=== PATIENT | female | born 1985 | race Two or more races ===

== ENCOUNTER → 2017-08-02 | Outpatient (CLI) | payer OTHER ==
[2017-08-02 14:57] LABS: T4, Free (Free Thyroxine) 0.73 ng/dL (0.78-2.19)
== END | disposition home or self-care (01) ==
LOC: LABWHC1 14:13
PROVIDERS: ATTEND Internal Medicine Endocrinology, Diabetes & Metabolism
DX: E05.90 Thyrotoxicosis, unspecified without thyrotoxic crisis or storm (principal)
CPT/HCPCS: 36415; 84439; 84443; 84480

== ENCOUNTER → 2017-08-08 | Outpatient (CLI) | payer OTHER ==
[2017-08-08 14:45] LABS: T4, Free (Free Thyroxine) 0.71 ng/dL (0.78-2.19)
== END | disposition home or self-care (01) ==
LOC: LABWHC1 14:00
PROVIDERS: ATTEND Internal Medicine Endocrinology, Diabetes & Metabolism
DX: E05.90 Thyrotoxicosis, unspecified without thyrotoxic crisis or storm (principal)
CPT/HCPCS: 36415; 84439; 84443

== ENCOUNTER → 2017-08-21 | Outpatient (CLI) | payer OTHER ==
[2017-08-21 14:06] LABS: T4, Free (Free Thyroxine) 0.78 ng/dL (0.78-2.19)
== END | disposition home or self-care (01) ==
LOC: LABWHC1 12:56
PROVIDERS: ATTEND Internal Medicine Endocrinology, Diabetes & Metabolism
DX: E05.90 Thyrotoxicosis, unspecified without thyrotoxic crisis or storm (principal)
CPT/HCPCS: 36415; 84439; 84443; 84480

== ENCOUNTER → 2017-09-29 | Outpatient (CLI) | payer OTHER | END | disposition home or self-care (01) | LOC: LABWHC1 12:55 | PROVIDERS: ATTEND Internal Medicine Endocrinology, Diabetes & Metabolism | DX: E03.8 Other specified hypothyroidism (principal) | CPT/HCPCS: 36415; 84443 ==

== ENCOUNTER → 2017-11-10 | Outpatient (CLI) | payer OTHER | END | disposition home or self-care (01) | LOC: LABWHC1 12:25 | PROVIDERS: ATTEND Internal Medicine Endocrinology, Diabetes & Metabolism | DX: E03.9 Hypothyroidism, unspecified (principal) | CPT/HCPCS: 36415; 84443 ==

== ENCOUNTER → 2017-12-25 | Outpatient (CLI) | payer OTHER | END | disposition home or self-care (01) | LOC: LABWHC1 13:19 | PROVIDERS: ATTEND Internal Medicine Endocrinology, Diabetes & Metabolism | DX: E03.8 Other specified hypothyroidism (principal) | CPT/HCPCS: 36415; 84443 ==

== ENCOUNTER → 2018-02-09 | Outpatient (CLI) | payer OTHER ==
[2018-02-09 15:46] LABS: T4, Free (Free Thyroxine) 1.12 ng/dL (0.78-2.19)
== END | disposition home or self-care (01) ==
LOC: LABWHC1 13:03
PROVIDERS: ATTEND Internal Medicine Endocrinology, Diabetes & Metabolism
DX: E03.8 Other specified hypothyroidism (principal)
CPT/HCPCS: 36415; 84439; 84443

== ENCOUNTER → 2018-03-22 | Outpatient (CLI) | payer OTHER ==
[2018-03-22 19:00] LABS: T4, Free (Free Thyroxine) 1.2 ng/dL (0.80-1.80)
== END | disposition home or self-care (01) ==
LOC: LABWHC1 13:22
PROVIDERS: ATTEND Internal Medicine Endocrinology, Diabetes & Metabolism
DX: E03.8 Other specified hypothyroidism (principal)
CPT/HCPCS: 36415; 84439; 84443

== ENCOUNTER → 2018-08-20 | Outpatient (CLI) | payer OTHER ==
[2018-08-20 13:19] LABS: Anisocytosis Slight; HGB 10.8 gm/dL (11.4-16.0); MCH 27.4 pg (25.0-35.0); MCHC 34.8 g/dL (31.0-37.0); MCV 78.8 fL (80.0-100.0); Mean Platelet Volume 10.5; Platelet Count 238 k/uL (150-450); Poikilocytosis Slight; RBC 3.93 m/uL (3.80-5.40); WBC 7.5 k/uL (3.8-10.6)
[2018-08-20 19:24] LABS: Uric Acid 7.3 mg/dL (2.9-7.7)
== END ==
LOC: LABWHC1 12:11
PROVIDERS: ATTEND Obstetrics & Gynecology
DX: O14.90 Unspecified pre-eclampsia, unspecified trimester (principal); Z3A.00 Weeks of gestation of pregnancy not specified
CPT/HCPCS: 36415; 82565; 84450; 84460; 84520; 84550; 85027

== ENCOUNTER 2018-08-21 11:41 | Inpatient (IN) | payer OTHER ==
[2018-08-21] MEDS: LACTATED RINGERS 1,000 ML IV SCH ×3 (12:00→23:07)
[2018-08-21] MEDS ORDERED: TERBUTALINE 1 MG/ML VIAL SQ PRN (12:01)
[2018-08-21] MEDS ORDERED: LIDOCAINE 0.5% (PF) 5 MG/ML (50 ML SDV) SQ PRN (12:01)
[2018-08-21] MEDS ORDERED: OXYTOCIN 10 UNIT/ML 1 ML VIAL IM PRN (12:01)
[2018-08-21] MEDS ORDERED: CARBOPROST TROMETHAMINE 250 MCG/ML 1 ML AMP IM PRN (12:01)
[2018-08-21] MEDS ORDERED: METHYLERGONOVINE 0.2 MG/ML 1 ML AMP IM PRN (12:01)
--- NOTE | 2018-08-21 12:14 | P.HPOB ---
History of Present Illness H&P Date: 08/21/18 Chief Complaint: Preeclampsia This is a 33-year-old 1 para 0 woman with an estimated due date of 09/20/2018 based on first trimester ultrasound who is admitted for induction of labor secondary to preeclampsia. At approximately 33 weeks patient developed asymptomatic proteinuria in her urine. She was otherwise asymptomatic and had normal blood pressures. A 24-hour urine protein showed greater than 3000 mg of protein. She has been followed closely and conservatively since that time with twice weekly labs and NSTs. Her home blood pressures and in office blood pressures have remained in the 130s over 80s range for the most part. On her most recent set of labs she did have an elevation in her AST to 42 and a uric acid of 7.3. Her platelets were normal. She continues to still 3-4+ protein on her urine dip and has developed lower extremity edema. For this reason she is admitted for induction of labor. Currently she denies headaches, visual changes, nausea, vomiting, abdominal pain, heartburn. She has felt good movement and denies contractions or leakage of fluids. She has significant lower extremity edema. Review of Systems All systems: negative Past Medical History Additional Past Medical History / Comment(s): Hypothyroid History of Any Multi-Drug Resistant Organisms: None Reported Past Surgical History: No Surgical Hx Reported Past Psychological History: No Psychological Hx Reported Smoking Status: Never smoker Past Alcohol Use History: None Reported Past Drug Use History: None Reported Medications and Allergies Home Medications Medication Instructions Recorded Confirmed Type Levothyroxine Sodium [Synthroid] 137 mcg PO DAILY 08/21/18 08/21/18 History Allergies Allergy/AdvReac Type Severity Reaction Status Date / Time No Known Allergies Allergy Verified 08/21/18 11:52 Exam Intake and Output 08/20/18 08/21/18 08/21/18 22:59 06:59 14:59 Other: Weight 80.739 kg This is a pleasant female who is visibly gravid. HEENT exam is unremarkable. Her breathing is on labored with no wheezing. Heart is of regular rate and rhythm. The abdomen is gravid with a fundal height of approximately 36 cm. There is no abdominal tenderness or flank pain. She has 2+ swelling of the lower extremities, 3+ deep tendon reflexes with no clonus. On pelvic examination the cervix is 1 cm dilated, 70% effaced and the vertex is in the -2 station. Cervix is anterior. heart tones are currently category 2 by external monitoring. She is having irregular and infrequent contractions. Assessment and Plan (1) 35 weeks gestation of Current Visit: Yes Status: Acute Code(s): Z3A.35 - 35 WEEKS GESTATION OF SNOMED Code(s): 99732652 (2) Preeclampsia Current Visit: Yes Status: Acute Code(s): O14.90 - UNSPECIFIED PRE- ECLAMPSIA, UNSPECIFIED TRIMESTER SNOMED Code(s): 801147620 (3) Hypothyroid Current Visit: Yes Status: Acute Code(s): E03.9 - HYPOTHYROIDISM, UNSPECIFIED SNOMED Code(s): 45847162 Plan: 33-year-old 1 para 0 at 35-4/7 with preeclampsia. She will be admitted, magnesium sulfate started and Pitocin induction of labor. Repeat labs now. status currently reassuring. Situation and indication for induction, magnesium were discussed in detail with the patient and her and all qu estions were answered. Special care nursery is aware.
[2018-08-21] MEDS ORDERED: CALCIUM CHLORIDE 0.5 GM in SODIUM CHLORIDE 0.9% 50 ML IVPB ONE (12:15)
[2018-08-21] MEDS ORDERED: MAGNESIUM SULFATE-WATER PMX 4 GM in WATER FOR INJECTION 1 100ML.BAG IVPB ONE (12:15)
[2018-08-21] MEDS ORDERED: OXYTOCIN 30 UNITS/500 ML NS 30 UNIT in SALINE 1 500ML.BAG IV SCH (12:15)
[2018-08-21 12:31] VITALS: BMI 29.6
[2018-08-21 12:36] LABS: Basophils % (A) 1 %; Blood Urea Nitrogen 17 mg/dL (7-17); Eosinophils # (A) 0.2 k/uL (0-0.7); Eosinophils % (A) 3 %; HCT 29.7 % (34.0-46.0); HGB 10.2 gm/dL (11.4-16.0); Lymphocytes # (A) 1.2 k/uL (1.0-4.8); Lymphocytes % (A) 18 %; MCHC 34.3 g/dL (31.0-37.0); MCV 78.8 fL (80.0-100.0); Mean Platelet Volume 10.3; Monocytes # (A) 0.3 k/uL (0-1.0); Monocytes % (A) 5 %; Neutrophils # (A) 4.7 k/uL (1.3-7.7); Neutrophils % (A) 71 %; Platelet Count 263 k/uL (150-450); Poikilocytosis Slight; RBC 3.77 m/uL (3.80-5.40); Uric Acid 7.4 mg/dL (3.7-7.4); WBC 6.6 k/uL (3.8-10.6)
[2018-08-21] MEDS: MAGNESIUM SULFATE-WATER PMX 20 GM in WATER FOR INJECTION 1 500ML.BAG IV SCH ×2 (12:52→23:03)
[2018-08-21 12:56] LABS: ALT 39 U/L (9-52); AST 60 U/L (14-36); LDH 895 U/L (313-618)
[2018-08-21] MEDS ORDERED: hydrALAZINE HCL 20 MG/ML 1 ML VIAL IVP ONE (13:03)
[2018-08-21 13:14] LABS: INR 0.8 (<1.2); Partial Thromboplastin Time 23.6 sec (22.0-30.0); Prothrombin Time 9.3 sec (9.0-12.0)
[2018-08-21] MEDS ORDERED: LABETALOL 5 MG/ML VIAL MDV IVP PRN ×2 (13:19)
[2018-08-21] MEDS ORDERED: hydrALAZINE HCL 20 MG/ML 1 ML VIAL IVP PRN ×2 (13:19)
[2018-08-21] MEDS ORDERED: BUTORPHANOL 1 MG/ML 1 ML VIAL IV PRN (15:42)
[2018-08-21] MEDS ORDERED: hydrALAZINE HCL 20 MG/ML 1 ML VIAL IM STA (17:22)
[2018-08-21] MEDS ORDERED: hydrALAZINE HCL 20 MG/ML 1 ML VIAL IVP STA (17:34)
[2018-08-21] MEDS ORDERED: fentaNYL (PF) 50 MCG/ML 5 ML AMP ONE (20:34)
[2018-08-21] MEDS ORDERED: SODIUM CHLORIDE 0.9% 100 ML BAG ONE (20:34)
[2018-08-21] MEDS ORDERED: ROPIVACAINE 5MG/ML 20ML VIAL ONE (20:34)
[2018-08-22] MEDS ORDERED: hydrALAZINE HCL 20 MG/ML 1 ML VIAL IVP STA (00:38)
[2018-08-22] MEDS ORDERED: CITRIC ACID-SODIUM CITRATE 15 ML CUP PO ONE (02:11)
[2018-08-22] MEDS ORDERED: ceFAZolin IN SWFI 2 GM/20 ML SYRINGE IVP ONE (02:11)
[2018-08-22] MEDS ORDERED: DEXAMETHASONE SOD PHOS (MDV) 100 MG/10 ML VIAL ONE (02:25)
[2018-08-22] MEDS ORDERED: ePHEDrine SULFATE/0.9% NACL/PF 50 MG/5 ML SYRINGE IV ONE (02:25)
[2018-08-22] MEDS ORDERED: NALBUPHINE 10 MG/ML (1 ML AMP) ONE (02:25)
[2018-08-22] MEDS ORDERED: MORPHINE SULFATE (PF) 0.3 MG/0.3 ML SYR ONE (02:25)
[2018-08-22] MEDS ORDERED: ONDANSETRON 4 MG/2 ML VIAL ONE (02:25)
[2018-08-22] MEDS ORDERED: NALOXONE 0.4 MG/ML 1 ML VIAL IV PRN (03:10)
[2018-08-22] MEDS ORDERED: ACETAMINOPHEN TAB 325 MG TAB PO PRN (03:10)
[2018-08-22] MEDS ORDERED: SIMETHICONE 80 MG CHEWABLE PO PRN (03:10)
[2018-08-22] MEDS ORDERED: HYDROcodone/APAP 5-325MG 1 EACH TAB PO PRN (03:10)
[2018-08-22] MEDS ORDERED: ONDANSETRON 4 MG/2 ML VIAL IVP PRN (03:10)
[2018-08-22] MEDS ORDERED: METOCLOPRAMIDE 5 MG/ML 2 ML VIAL IVP PRN (03:10)
[2018-08-22] MEDS ORDERED: diphenhydrAMINE 50 MG/ML 1 ML VIAL IVP PRN ×2 (03:10)
[2018-08-22] MEDS ORDERED: diphenhydrAMINE 25 MG CAP PO PRN (03:10)
[2018-08-22] MEDS ORDERED: diphenhydrAMINE 50 MG CAP PO PRN (03:10)
[2018-08-22] MEDS ORDERED: ZOLPIDEM 5 MG TAB PO PRN (03:10)
--- NOTE | 2018-08-22 03:10 | P.OP ---
Date of Procedure: 08/22/18 Preoperative Diagnosis: Intrauterine at 35-4/7 weeks' gestation Preeclampsia Category 3 heart tones Postoperative Diagnosis: Same Procedure(s) Performed: Primary low transverse section Anesthesia: spinal Surgeon: Kathy Tan [employer] Sales Leader #1: Yaakov Mittal Estimated Blood Loss (ml): 500 IV fluids (ml): 1,400 Urine output (ml): 50 Pathology: other (Placenta) Condition: stable Disposition: PACU Indications for Procedure: This is a 33-year-old 1 para 0 woman who was admitted at 35-4/7 weeks' gestation with preeclampsia. She had been monitored for proteinuria for the past 1-2 weeks however she began having a trend upward and her liver function tests and blood pressure therefore was admitted for induction of labor. On admission she was 1 cm dilated and 70% effaced. Pitocin induction was initiated and magnesium sulfate was initiated. She underwent artificial rupture of membranes and had slow progression to active labor. She did require hydralazine on 3 occasions for blood pressure management. She did receive an epidural anesthetic and progressed to approximately 7 cm dilated. Over the last 1 hour of the her labor she had minimal variability with absent accelerations and moderate variable decelerations with contractions. She had made no further progress despite 20 milliunits of Pitocin per minute and therefore the decision was made to proceed to section. The patient and her were counseled on and risks and benefits were reviewed. Consent was obtained. Operative Findings: Female in the vertex occiput posterior position with Apgars of 8 at 1 minute and 9 at 5 minutes weighing 5 lbs. 9 oz., 2530 g. Calcified, intact three-vessel cord placenta. Normal-appearing bilateral fallopian tubes and ovaries. Description of Procedure: After the patient was met preoperatively and all questions were answered, she was taken to the operating room where spinal anesthetic was administered without incident. She was then positioned, prepped and draped in the dorsal supine position with a leftward tilt. Toledo catheter was placed. After anesthetic was confirmed adequate, a low transverse skin incision was made following the pre- existing scar. This was carried down to the underlying fascia both sharply and with the electrocautery. The fascia was then incised in the midline and extended bilaterally with the Pike scissors. The superior aspect of the fascial incision was elevated and the underlying rectus muscles dissected off sharply and with the electrocautery. The inferior aspect of the fascial incision was also elevated and the underlying rectus muscles dissected off sharply. The muscles were adherent in the midline. These were bluntly and the per itoneum was tented up with hemostats. The peritoneum was entered sharply with the Metzenbaum scissors. There was a large amount of clear intraperitoneal fluid. The peritoneal incision was extended inferiorly and superiorly with good visualization of the bladder. The bladder blade was placed. The vesicouterine peritoneum was identified, tented up and entered sharply, the bladder flap was created both sharply and digitally. A low transverse uterine incision was then made sharply and carried down to the underlying amniotic membranes. Membranes were ruptured and clear fluid was noted. The uterine incision was extended bilaterally bluntly. The infant's head was delivered from the incision without difficulty. The nose and mouth were bulb suctioned. The rest of the infant was delivered onto the field without difficulty. And cut and the infant was taken to the warmer. An intact, three-vessel cord placenta was then manually removed and the uterus was exteriorized. The uterus was cleared of all clot and debris. The uterine incision was delineated with Tam clamps. The uterine incision was then closed in a running locked fashion with 0 Vicryl suture. A second imbricating layer was placed. Additional [id number] sutures were placed where necessary along the incision for hemostasis. The uterus was then returned to the abdomen and the gutters were cleared of all clot and debris. The uterine incision was reinspected and Bovie electrocautery was utilized were necessary for hemostasis. The fascial edges, peritoneal edges and rectus muscles were inspected and Bovie electrocautery utilized were necessary for hemostasis. The fascia was then closed in a running fashion with 0 Vicryl suture. The subcuticular tissue was copiously suction irrigated and Bovie el ectrocautery utilized were necessary for hemostasis. 3-0 Vicryl suture was utilized to reapproximate the subcuticular tissue. The skin was then closed in a subcutaneous fashion with siva. All counts reported to me as correct by the operating room staff at the end of the procedure. The patient received antibiotics preoperatively and Pitocin following cord clamp. Mother and infant were both transported from the room in stable condition. Of note the urine in the Toledo catheter was bloody prior to the section likely secondary to the low station of the head.
[2018-08-22] MEDS ORDERED: OXYTOCIN 20 UNITS/1000 ML NS 1,000 ML IV SCH (03:15)
[2018-08-22 04:53] LABS: Anisocytosis Slight; HCT 30.3 % (34.0-46.0); HGB 10.1 gm/dL (11.4-16.0); MCH 26.8 pg (25.0-35.0); MCHC 33.5 g/dL (31.0-37.0); Mean Platelet Volume 10.8; Platelet Count 281 k/uL (150-450); RBC 3.79 m/uL (3.80-5.40); RDW 16.3 % (11.5-15.5)
[2018-08-22 05:26] LABS: Magnesium 7.4 mg/dL (1.6-2.3)
[2018-08-22] MEDS: LACTATED RINGERS 1,000 ML IV SCH ×2 (05:46→10:04)
[2018-08-22] MEDS: SENNOSIDES-DOCUSATE SODIUM 1 EACH TAB PO SCH (11:16)
[2018-08-22] MEDS: MAGNESIUM SULFATE-WATER PMX 20 GM in WATER FOR INJECTION 1 500ML.BAG IV SCH (21:01)
[2018-08-23] MEDS: SENNOSIDES-DOCUSATE SODIUM 1 EACH TAB PO SCH ×3 (00:54→21:36)
[2018-08-23] MEDS: LACTATED RINGERS 1,000 ML IV SCH (01:56)
--- NOTE | 2018-08-23 07:29 | P.PN ---
Progress Note - Text Anesthesia POD 1. Patient is status post section under final anesthesia with intra-thecal preservative free morphine 300 g. Mild pruritus, good post-op analgesia, and no headache or other complications.
[2018-08-23 07:40] LABS: Anisocytosis Slight; Basophils % (A) 0 %; Eosinophils # (A) 0.1 k/uL (0-0.7); Eosinophils % (A) 0 %; HCT 28.5 % (34.0-46.0); HGB 9.4 gm/dL (11.4-16.0); Lymphocytes # (A) 1.3 k/uL (1.0-4.8); Lymphocytes % (A) 8 %; MCH 26.2 pg (25.0-35.0); MCHC 33.2 g/dL (31.0-37.0); MCV 78.9 fL (80.0-100.0); Mean Platelet Volume 10.4; Monocytes # (A) 0.8 k/uL (0-1.0); Monocytes % (A) 5 %; Neutrophils # (A) 13.5 k/uL (1.3-7.7); Neutrophils % (A) 86 %; Platelet Count 294 k/uL (150-450); RBC 3.61 m/uL (3.80-5.40); RDW 16.8 % (11.5-15.5); WBC 15.8 k/uL (3.8-10.6)
--- NOTE | 2018-08-23 08:28 | P.PNOBGPC ---
Subjective - Subjective Principal diagnosis: Preeclampsia Interval history: Postop day 1 status post repeat low transverse section. Patient was monitored closely throughout the last 24 hours. She was initially oliguric in the first 12 hours post operative with urine outputs between 25 and 40 mL's per hour a very concentrated urine. She was also extremely nauseated with emesis. Therefore her magnesium sulfate was discontinued at 12 hours postoperatively. Her blood pressures ranged from 130s to 160s over 80s to 90s. By the evening her urine output began to significantly improve and her nausea had resolved. This morning she reports feeling significantly better. She is tolerating a general diet. She denies headaches, visual changes, nausea, vomiting. She did receive hydralazine for elevated blood pressure once throughout the night. She reports her pain is well-controlled. Patient reports: Reports appetite normal, Reports pain well controlled, Denies nauseated [place]: doing well (And special care nursery for gestational age) Objective - Vital Signs Latest vital signs: Vital Signs Temp Pulse Resp BP Pulse Ox 08/23/18 04:00 98.2 F 56 L 16 137/75 97 08/23/18 00:00 98.0 F 56 L 16 163/89 98 08/22/18 23:00 55 L 16 158/87 97 08/22/18 22:00 60 16 163/90 97 08/22/18 21:00 54 L 16 146/85 96 08/22/18 20:00 97.6 F 55 L 16 157/87 100 08/22/18 19:00 97.1 F L 57 L 16 153/93 99 08/22/18 18:00 61 16 161/92 99 08/22/18 17:00 52 L 16 148/90 97 08/22/18 16:00 97.7 F 59 L 16 139/88 96 08/22/18 15:00 55 L 16 137/84 96 08/22/18 14:00 62 16 156/89 96 08/22/18 13:00 64 16 164/87 98 08/22/18 12:00 71 16 124/82 96 08/22/18 11:00 71 16 137/83 08/22/18 10:00 50 L 16 134/80 97 08/22/18 09:00 55 L 16 152/88 96 Intake and Output 08/22/18 08/23/18 08/23/18 22:59 06:59 14:59 Intake Total 1000 Output Total 680 2200 Balance 320 -2200 Intake: Oral 1000 Output: Urine 680 2200 Other: Voiding Method Indwelling Catheter - Exam Lungs: right: crackles/rales, left: normal Chest: Normal S1, Normal S2 Extremities: Present: normal, edema (3+) Abdomen: Present: soft, distention (Soft). Absent: tenderness Incision: Present: normal, dry, intact Uterus: Present: normal, firm. Absent: tenderness - Labs Labs: Abnormal Lab Results - Last 24 Hours (Table) 08/23/18 Range/Units 06:47 WBC 15.8 H (3.8-10.6) k/uL RBC 3.61 L (3.80-5.40) m/uL Hgb 9.4 L (11.4-16.0) gm/dL Hct 28.5 L (34.0-46.0) % MCV 78.9 L (80.0-100.0) fL RDW 16.8 H (11.5-15.5) % Neutrophils # 13.5 H (1.3-7.7) k/uL Assessment and Plan (1) 35 weeks gestation of Current Visit: Yes Status: Acute Code(s): Z3A.35 - 35 WEEKS GESTATION OF SNOMED Code(s): 21320023 (2) Preeclampsia Current Visit: Yes Status: Acute Code(s): O14.90 - UNSPECIFIED PRE- ECLAMPSIA, UNSPECIFIED TRIMESTER SNOMED Code(s): 709967412 (3) Hypothyroid Current Visit: Yes Status: Acute Code(s): E03.9 - HYPOTHYROIDISM, UNSPECIFIED SNOMED Code(s): 52244773 (4) S/P section Current Visit: Yes Status: Acute Code(s): Z98.891 - HISTORY OF UTERINE SCAR FROM PREVIOUS SURGERY SNOMED Code(s): 992704472 Plan: Postop day 1 status post primary low transverse section for preeclampsia and nonreassuring status. She is now greater than 24 hours postdelivery and her magnesium sulfate has been discontinued. She is now diuresing very well with copious clear urine output. I will start her on by mouth labetalol twice daily and discontinue her Toledo catheter and IV fluids. Increase ambulation.
[2018-08-23] MEDS: IBUPROFEN 600 MG TAB PO PRN ×2 (09:07→18:43)
[2018-08-23] MEDS: LABETALOL 200 MG TAB PO SCH ×2 (09:07→21:36)
[2018-08-24] MEDS: LACTATED RINGERS 1,000 ML IV SCH (02:14)
--- NOTE | 2018-08-24 08:09 | P.PNOBGPC ---
Subjective - Subjective Principal diagnosis: Preeclampsia, postop day 2 Interval history: Feeling significantly better this morning. She is ambulating and voiding without difficulty. Lower extremity and abdominal edema significantly improved. Denies headaches, visual changes, nausea, vomiting. Pain recently well- controlled with ibuprofen. Minimal vaginal bleeding. Patient reports: Reports appetite normal, Reports voiding normally, Reports pain well controlled, Reports ambulating normally, Denies nauseated [place]: doing well (Special care nursery for gestational age) Objective - Vital Signs Latest vital signs: Vital Signs Temp Pulse Resp BP Pulse Ox 08/24/18 04:00 98.9 F 62 16 132/72 08/24/18 00:00 98.3 F 56 L 16 148/75 98 08/23/18 20:00 98.7 F 67 16 142/85 99 08/23/18 16:00 98.4 F 61 18 152/88 99 08/23/18 12:00 98.2 F 56 L 18 142/74 Intake and Output 08/23/18 08/24/18 08/24/18 22:59 06:59 14:59 Output Total 1100 Balance -1100 Output: Urine 1100 Other: Voiding Method Indwelling Catheter # Voids 1 - Exam Lungs: bilateral: normal Chest: Normal S1, Normal S2 Extremities: Present: normal, edema (2+). Absent: tenderness Abdomen: Present: normal appearance, soft. Absent: distention, tenderness Incision: Present: normal, dry, intact Uterus: Present: normal, firm. Absent: tenderness Assessment and Plan (1) 35 weeks gestation of Current Visit: Yes Status: Acute Code(s): Z3A.35 - 35 WEEKS GESTATION OF SNOMED Code(s): 44400688 (2) Preeclampsia Current Visit: Yes Status: Acute Code(s): O14.90 - UNSPECIFIED PRE- ECLAMPSIA, UNSPECIFIED TRIMESTER SNOMED Code(s): 900849960 (3) Hypothyroid Current Visit: Yes Status: Acute Code(s): E03.9 - HYPOTHYROIDISM, UNSPECIFIED SNOMED Code(s): 45121934 (4) S/P section Current Visit: Yes Status: Acute Code(s): Z98.891 - HISTORY OF UTERINE SCAR FROM PREVIOUS SURGERY SNOMED Code(s): 438910093 (5) Non-reassuring heart rate or rhythm affecting management of fetus Current Visit: Yes Status: Acute Code(s): KXT9886 - SNOMED Code(s): 357392645 Plan: Postoperative day 2 status post primary low transverse section secondary to preeclampsia and nonreassuring heart tones. Significant improvement in fluid status today. Excellent urine output and it decreased in edema of the lower extremities. Blood pressures are mainly 130s to 140s over 70s to 80s on labetalol 200 mg twice a day. She otherwise is asymptomatic and is recovering well postoperatively. Events leading up to admission, labor and her course were reviewed in detail with the patient and her this morning. Infant is doing very well in the special care nursery. All questions were answered. I anticipate discharge home on Monday with close follow-up in the office for blood pressure monitoring.
[2018-08-24] MEDS: SENNOSIDES-DOCUSATE SODIUM 1 EACH TAB PO SCH ×2 (09:40→21:27)
[2018-08-24] MEDS: LABETALOL 200 MG TAB PO SCH ×2 (09:47→20:40)
[2018-08-24] MEDS: IBUPROFEN 600 MG TAB PO PRN (19:21)
[2018-08-25] MEDS: LABETALOL 200 MG TAB PO SCH ×5 (03:16→22:53)
--- NOTE | 2018-08-25 08:42 | P.PNOBGPC ---
Subjective - Subjective Principal diagnosis: POD 3 LTCS, severe preeclampsia Interval history: Patient is doing well postoperatively. She did have some elevated blood pressures last evening 150s over 100s therefore her 200 mg of labetalol was increased to 3 times a day from PID. Patient is seen this morning she is ambulating and voiding without difficulty. She looks well. She states she is feeling well. is doing well in special care nursery she denies any concerns denies headache right upper quadrant pain swelling continues to decrease. Patient reports: Reports appetite normal, Reports voiding normally, Reports pain well controlled, Reports ambulating normally [place]: doing well (In special care nursery) Objective - Vital Signs Latest vital signs: Vital Signs Temp Pulse Resp BP Pulse Ox 08/25/18 08:00 97.6 F 60 15 108/52 98 08/25/18 03:17 59 L 153/101 08/25/18 00:00 98.7 F 56 L 14 135/74 08/24/18 16:00 98.2 F 76 16 158/100 - Exam Extremities: Present: normal, edema Abdomen: Present: normal appearance, soft Incision: Present: normal, dry, intact Uterus: Present: normal, firm Assessment and Plan (1) 35 weeks gestation of Current Visit: Yes Status: Acute Code(s): Z3A.35 - 35 WEEKS GESTATION OF SNOMED Code(s): 99974899 (2) Hypothyroid Current Visit: Yes Status: Acute Code(s): E03.9 - HYPOTHYROIDISM, UNSPECIFIED SNOMED Code(s): 09118700 (3) Non-reassuring heart rate or rhythm affecting management of fetus Current Visit: Yes Status: Acute Code(s): BRO5887 - SNOMED Code(s): 385343410 (4) Preeclampsia Current Visit: Yes Status: Acute Code(s): O14.90 - UNSPECIFIED PRE- ECLAMPSIA, UNSPECIFIED TRIMESTER SNOMED Code(s): 587299826 (5) S/P section Current Visit: Yes Status: Acute Code(s): Z98.891 - HISTORY OF UTERINE SCAR FROM PREVIOUS SURGERY SNOMED Code(s): 729758935 Plan: We will continue routine postoperative care, and continue to monitor blood pressures closely.
[2018-08-25] MEDS: SENNOSIDES-DOCUSATE SODIUM 1 EACH TAB PO SCH ×2 (08:54→20:41)
[2018-08-26 06:57] LABS: Anisocytosis Slight; Basophils % (A) 0 %; Eosinophils # (A) 0.6 k/uL (0-0.7); Eosinophils % (A) 6 %; HCT 27.6 % (34.0-46.0); HGB 9.1 gm/dL (11.4-16.0); Lymphocytes # (A) 1.5 k/uL (1.0-4.8); Lymphocytes % (A) 15 %; MCH 25.8 pg (25.0-35.0); MCV 78.2 fL (80.0-100.0); Mean Platelet Volume 11.2; Microcytosis Slight; Monocytes # (A) 0.5 k/uL (0-1.0); Monocytes % (A) 5 %; Neutrophils # (A) 7.2 k/uL (1.3-7.7); Neutrophils % (A) 72 %; Platelet Count 279 k/uL (150-450); RBC 3.54 m/uL (3.80-5.40); RDW 17.4 % (11.5-15.5); WBC 9.9 k/uL (3.8-10.6)
[2018-08-26 07:16] LABS: ALT 96 U/L (9-52); AST 74 U/L (14-36); Blood Urea Nitrogen 8 mg/dL (7-17); LDH 796 U/L (313-618); Uric Acid 5.5 mg/dL (3.7-7.4)
[2018-08-26] MEDS: LABETALOL 200 MG TAB PO SCH ×3 (08:51→22:03)
[2018-08-26] MEDS: SENNOSIDES-DOCUSATE SODIUM 1 EACH TAB PO SCH ×2 (08:51→20:11)
--- NOTE | 2018-08-26 16:11 | P.PNOBGPC ---
Subjective - Subjective Principal diagnosis: POD 4 LTCS Interval history: Patient is noted to still have labile blood pressures. 150s to 160s over 90s to 100s. Patient does respond well to labetalol by mouth. Labs were done last night and elevation of a LT from 39-96 was noted uric acid was noted to drop from 7.4-5.5 but given this elevation of her liver function and labile blood pressures we'll keep 1 more day for close observation of blood pressures and possible need to adjust labetalol dose. Patient denies headache right upper quadrant pain and swelling continues to decrease. She is ambulating and voiding without difficulty. She is tolerating regular diet without nausea or vomiting. She states her lochia is minimal. She is pumping. Patient reports: Reports appetite normal, Reports voiding normally, Reports pain well controlled, Reports ambulating normally : doing well (in the special care nursery, feeding is improved. ) Objective - Vital Signs Latest vital signs: Vital Signs Temp Pulse Resp BP 08/26/18 08:00 978 F H 73 16 141/86 08/26/18 04:20 98.4 F 51 L 16 167/94 08/26/18 00:00 98.3 F 69 14 163/90 - Exam Extremities: Present: normal, edema Abdomen: Present: normal appearance, soft Incision: Present: normal, dry, intact Uterus: Present: normal - Labs Labs: Abnormal Lab Results - Last 24 Hours (Table) 08/26/18 08/26/18 Range/Units 06:21 06:21 RBC 3.54 L (3.80-5.40) m/uL Hgb 9.1 L (11.4-16.0) gm/dL Hct 27.6 L (34.0-46.0) % MCV 78.2 L (80.0-100.0) fL RDW 17.4 H (11.5-15.5) % AST 74 H (14-36) U/L ALT 96 H (9-52) U/L Lactate Dehydrogenase 796 H (313-618) U/L Assessment and Plan (1) 35 weeks gestation of Current Visit: Yes Status: Acute Code(s): Z3A.35 - 35 WEEKS GESTATION OF SNOMED Code(s): 91403363 (2) Hypothyroid Current Visit: Yes Status: Acute Code(s): E03.9 - HYPOTHYROIDISM, UNSPECIFIED SNOMED Code(s): 58273757 (3) Non-reassuring heart rate or rhythm affecting management of fetus Current Visit: Yes Status: Acute Code(s): FTM9996 - SNOMED Code(s): 802847152 (4) Preeclampsia Current Visit: Yes Status: Acute Code(s): O14.90 - UNSPECIFIED PRE- ECLAMPSIA, UNSPECIFIED TRIMESTER SNOMED Code(s): 905634126 (5) S/P section Current Visit: Yes Status: Acute Code(s): Z98.891 - HISTORY OF UTERINE SCAR FROM PREVIOUS SURGERY SNOMED Code(s): 259788887 Plan: We'll plan to monitor blood pressures closely over the evening and if controlled we'll plan discharge home tomorrow. Patient is given a prescription for a breast pump to be filled tomorrow morning. And labetalol prescription is on chart.
[2018-08-26 23:51] VITALS: PULSE 68
[2018-08-27] MEDS: SENNOSIDES-DOCUSATE SODIUM 1 EACH TAB PO SCH (07:28)
--- NOTE | 2018-08-27 08:29 | P.DS ---
Providers Date of admission: 08/21/18 11:41 Expected date of discharge: 08/27/18 Attending physician: Kathy Tan Primary care physician: Stated None - Discharge Diagnosis(es) (1) 35 weeks gestation of Current Visit: Yes Status: Acute (2) Preeclampsia Current Visit: Yes Status: Acute (3) Hypothyroid Current Visit: Yes Status: Acute (4) S/P section Current Visit: Yes Status: Acute (5) Non-reassuring heart rate or rhythm affecting management of fetus Current Visit: Yes Status: Acute Hospital Course: This is a 33-year-old 1 now para 1010 woman who was admitted at 35-3/7 weeks gestation with preeclampsia. She had been followed for proteinuria for the previous 2 weeks however began to show worsening signs with increase in lower extremity swelling, increase in blood pressures and abnormalities in her liver function tests. She was therefore admitted for induction of labor. On admission she was noted to have significant hypertension and magnesium sulfate was also initiated for seizure prophylaxis. She underwent a Pitocin induction of labor. She received an epidural anesthetic and did require IV antihypertensives throughout the first stage of labor to control her blood pressures. Unfortunately she developed some nonreassuring heart tones and ultimately underwent a primary low transverse section. Please see the operative report for details. She was delivered of a liveborn female with Apgars of 8 at 1 minute and 9 at 5 minutes weighing 5 lbs. 3 oz. The patient's initial postoperative course was remarkable for ongoing hypertension and oliguria. Her magnesium sulfate was maintained until 12 hours post delivery but was discontinued at that time due to concerns for ongoing oliguria and severe maternal nausea and vomiting. She had significant increase in swelling of her lower extremities however her blood pressures initially were better. By the morning of postoperative day #1 she began to diurese very well with copious clear urine output. Unfortunately her blood pressures began to trend back upward. On postoperative day 2 she was started on labetalol 200 mg twice a day. By postoperative day #3 her swelling of the lower extremities was improving, she was ambulating and voiding without difficulty, she remains remarkably asymptomatic. By postoperative day 4 unfortunately her blood pressures again became labile and elevated and her labetalol dosing was increased to 3 times daily. She also showed a slight shift upward and her AST and ALT although her uric acid decreased and her platelet counts remained normal. On day of discharge, postoperative day #5 she continues to feel very well. She has 2+ lower extremity edema. Her incision is well-healing. She was ambulating and voiding without difficulty and denies any preeclamptic symptoms. Her blood pressures were in the 160s over 90s through the night and her labetalol was increased to 300 mg 3 times a day. She will be monitored throughout the day of discharge for response to new blood pressure dosing and if this is favorable she will be discharged home. Procedures: Primary low transverse section Patient Condition at Discharge: Good Plan - Discharge Summary New Discharge Prescriptions: New Ibuprofen [Motrin] 600 mg PO Q6HR PRN tab PRN Reason: Mild Pain Or Fever >= 100.5 Labetalol [Trandate] 300 mg PO TID #30 tab No Action Levothyroxine Sodium [Synthroid] 137 mcg PO DAILY Discharge Medication List Levothyroxine Sodium [Synthroid] 137 mcg PO DAILY 08/21/18 [History] Ibuprofen [Motrin] 600 mg PO Q6HR PRN tab 08/27/18 [Rx] Labetalol [Trandate] 300 mg PO TID #30 tab 08/27/18 [Rx] Follow up Appointment(s)/Referral(s): Kathy Tan MD [STAFF PHYSICIAN] - 08/29/18 (BP check at [place] office) Activity/Diet/Wound Care/Special Instructions: Follow-up in the office in 2 days for blood pressure check. Notify the office with any concerning signs or symptoms including home blood pressures consistently greater than 160s over 90s, headaches, visual changes, nausea, vomiting, abdominal pain, heavy vaginal bleeding, foul vaginal discharge, redness or swelling of the lower extremities, redness or foul drainage of the incision site. Discharge Disposition: HOME SELF-CARE
[2018-08-27 08:38] VITALS: RESP 17; TEMP 98
[2018-08-27] MEDS ORDERED: LABETALOL 100 MG TAB PO SCH ×2 (09:00)
[2018-08-27 13:10] VITALS: BP 134/82
== END 2018-08-27 14:58 | disposition home or self-care (01) | DRG 788 ==
LOC: 4FBP 11:41
PROVIDERS: ADMIT Obstetrics & Gynecology; ATTEND Obstetrics & Gynecology
PROC: 3E033VJ Introduction of Other Hormone into Peripheral Vein, Percutaneous Approach (ICD-10-PCS; 2018-08-21)
PROC: 10907ZC Drainage of Amniotic Fluid, Therapeutic from Products of Conception, Via Natural or Artificial Opening (ICD-10-PCS; 2018-08-21)
PROC: 10D00Z1 Extraction of Products of Conception, Low, Open Approach (ICD-10-PCS; principal; 2018-08-22 02:30)
DX: O14.14 Severe pre-eclampsia complicating childbirth (principal); O76 Abnormality in fetal heart rate and rhythm complicating labor and delivery; E03.9 Hypothyroidism, unspecified; O99.284 Endocrine, nutritional and metabolic diseases complicating childbirth; Z79.890 Hormone replacement therapy; Z37.0 Single live birth; Z3A.35 35 weeks gestation of pregnancy; L29.9 Pruritus, unspecified
CPT/HCPCS: 82565; 83615; 83735; 84450; 84460; 84520; 84550; 85025; 85027; 85384; 85610; 85730; 86850; 86900; 86901; 88307

== ENCOUNTER → 2018-09-19 | Outpatient (CLI) | payer OTHER | LOC: LABWHC1 13:18 | PROVIDERS: ATTEND Internal Medicine Endocrinology, Diabetes & Metabolism | DX: E03.8 Other specified hypothyroidism (principal) | CPT/HCPCS: 36415; 84443 ==

== ENCOUNTER → 2019-02-06 | Outpatient (CLI) | payer OTHER | END | disposition home or self-care (01) | LOC: LABWHC1 12:11 | PROVIDERS: ATTEND Internal Medicine Endocrinology, Diabetes & Metabolism | DX: E03.8 Other specified hypothyroidism (principal) | CPT/HCPCS: 36415; 84443 ==

== ENCOUNTER → 2019-06-06 | Outpatient (CLI) | payer OTHER | END | disposition home or self-care (01) | LOC: LABWHC1 12:32 | PROVIDERS: ATTEND Internal Medicine Endocrinology, Diabetes & Metabolism | DX: E03.8 Other specified hypothyroidism (principal) | CPT/HCPCS: 36415; 84443 ==

== ENCOUNTER → 2019-12-11 | Outpatient (CLI) | payer OTHER | END | disposition home or self-care (01) | LOC: LABWHC1 14:59 | PROVIDERS: ATTEND Internal Medicine Endocrinology, Diabetes & Metabolism | DX: E03.8 Other specified hypothyroidism (principal) | CPT/HCPCS: 36415; 84443 ==

== ENCOUNTER → 2020-04-27 | Outpatient (CLI) | payer OTHER ==
[2020-04-27 11:35] LABS: Uric Acid 3.3 mg/dL (3.7-7.4)
[2020-04-27 11:53] LABS: Anisocytosis Slight; HCT 33.5 % (34.0-46.0); HGB 11.3 gm/dL (11.4-16.0); MCH 27.9 pg (25.0-35.0); MCHC 33.7 g/dL (31.0-37.0); Mean Platelet Volume 7.3; Platelet Count 297 k/uL (150-450); RBC 4.04 m/uL (3.80-5.40)
[2020-04-27 14:56] LABS: Total Protein 24 Hour,Urine 263 mg/24hr (42.0-225.0); Total Volume 24 Hour,Urine 2020 mls (800-1800)
[2020-04-27 14:57] LABS: Creatinine 24 Hour,Urine 993.8 mg/24hr (800.0-1800.0)
== END | disposition home or self-care (01) ==
LOC: LABWHC1 10:02
PROVIDERS: ATTEND Obstetrics & Gynecology
DX: O12.10 Gestational proteinuria, unspecified trimester (principal)
CPT/HCPCS: 36415; 81050; 82575; 84156; 84450; 84460; 84550; 85027

== ENCOUNTER → 2020-06-19 | Outpatient (CLI) | payer OTHER ==
[2020-06-19 12:32] LABS: HCT 33.7 % (34.0-46.0); HGB 11.8 gm/dL (11.4-16.0); MCH 30.3 pg (25.0-35.0); MCV 86.7 fL (80.0-100.0); Mean Platelet Volume 8.3; Platelet Count 280 k/uL (150-450); RBC 3.89 m/uL (3.80-5.40); RDW 13.9 % (11.5-15.5); WBC 7.8 k/uL (3.8-10.6)
[2020-06-19 12:51] LABS: Uric Acid 4.3 mg/dL (3.7-7.4)
[2020-06-19 13:29] LABS: Total Protein 24 Hour,Urine 240 mg/24hr (42.0-225.0); Total Volume 24 Hour,Urine 2000 mls (800-1800)
== END | disposition home or self-care (01) ==
LOC: LABWHC1 11:30
PROVIDERS: ATTEND Internal Medicine Endocrinology, Diabetes & Metabolism
DX: E03.8 Other specified hypothyroidism (principal); R80.9 Proteinuria, unspecified; R60.0 Localized edema
CPT/HCPCS: 36415; 81050; 82575; 84156; 84443; 84450; 84460; 84550; 85027

== ENCOUNTER 2020-07-13 12:28 | Inpatient (IN) | payer OTHER ==
[2020-07-13] MEDS ORDERED: METHYLERGONOVINE 0.2 MG/ML 1 ML AMP IM PRN (12:58)
[2020-07-13] MEDS ORDERED: hydrALAZINE HCL 20 MG/ML 1 ML VIAL IVP STA (12:58)
[2020-07-13] MEDS ORDERED: CARBOPROST TROMETHAMINE 250 MCG/ML 1 ML AMP IM PRN (12:58)
[2020-07-13] MEDS ORDERED: TERBUTALINE 1 MG/ML VIAL SQ PRN (12:58)
[2020-07-13] MEDS ORDERED: LIDOCAINE 0.5% (PF) 5 MG/ML (50 ML SDV) SQ PRN (12:58)
[2020-07-13] MEDS ORDERED: PENICILLIN G POTASSIUM 5,000,000 UNIT in DEXTROSE 5% IN WATER 100 ML IVPB STA ×2 (12:58)
[2020-07-13] MEDS ORDERED: OXYTOCIN 10 UNIT/ML 1 ML VIAL IM PRN (12:58)
--- NOTE | 2020-07-13 13:39 | P.HPOB ---
History of Present Illness H&P Date: 07/13/20 Chief Complaint: Labor at 39-4/7 This is a 34-year-old 2 para 0101 woman with an estimated due date of 07/17/2020 based on LMP consistent with second trimester ultrasound. She presents with on onset of painful regular contractions starting approximately 8 AM. She presents to labor and delivery triage was found to be actively walter and her cervix is 3.5 cm dilated. Her initial admission blood pressures were 130s over 70s however they increased to the to 166/112. She has a history in previous of preeclampsia at 35 weeks gestation and has had intermittent proteinuria throughout this . Most recent 24-hour urine protein was approximately 260 mg per 24 hours. Her blood pressures have been normal in the outpatient setting. She denies headaches, visual changes, abdominal pain or significant increase in lower extremity swelling. She's had good movement. She's had a previous low transverse section at 35 weeks gestation for preeclampsia and nonreassuring heart tones. She was desiring a trial of labor after section. She has been counseled on the outpatient setting regarding risks and benefits of this. Laboratory data: Blood type O positive, antibody screen negative, rubella immune, VDRL nonreactive, hep Shannan surface antigen negative, HIV negative, gonorrhea and chlamydia cultures negative, thus tolerance testing within normal limits, group B strep Review of Systems All systems: negative Past Medical History Past Medical History: No Reported History Additional Past Medical History / Comment(s): Hypothyroid History of Any Multi-Drug Resistant Organisms: None Reported Past Surgical History: Section (2019) Past Anesthesia/Blood Transfusion Reactions: No Reported Reaction Smoking Status: Never smoker - Past Family History Father Family Medical History: No Reported History Medications and Allergies Home Medications Medication Instructions Recorded Confirmed Type Levothyroxine Sodium [Synthroid] 125 mcg PO DAILY 08/21/18 07/13/20 History Allergies Allergy/AdvReac Type Severity Reaction Status Date / Time No Known Allergies Allergy Verified 07/13/20 12:34 Exam Vital Signs Temp Pulse Resp BP Pulse Ox 07/13/20 12:44 98.8 F 61 16 137/95 100 Intake and Output 07/12/20 07/13/20 07/13/20 22:59 06:59 14:59 Other: Weight 71.668 kg Targeted physical exam is performed upon my initial assessment. This is a visibly gravid female in no acute distress. HEENT exam unremarkable. Lungs are clear and the heart is a regular rate and rhythm. Breathing unlabored. Abdomen is gravid with no right upper quadrant pain. She has 1+ bilateral lower extremity edema. Per RN cervix is 3+ centimeters dilated, 80% effaced and vertex in the -3 station. heart tones are category 1 and she is walter every 2-4 minutes spontaneously. Assessment and Plan (1) GBS (group B Streptococcus carrier), +RV culture, currently Current Visit: Yes Status: Acute Code(s): O99.820 - STREPTOCOCCUS B CARRIER STATE COMPLICATING SNOMED Code(s): 0591676787259 (2) History of section Current Visit: Yes Status: Acute Code(s): Z98.891 - HISTORY OF UTERINE SCAR FROM PREVIOUS SURGERY SNOMED Code(s): 036935979 (3) Hypothyroid Current Visit: No Status: Acute Code(s): E03.9 - HYPOTHYROIDISM, UNSPECIFIED SNOMED Code(s): 94114791 (4) Spontaneous onset of labor Current Visit: Yes Status: Acute Code(s): KKD6172 - SNOMED Code(s): 68669889 Plan: 34-year-old 2 para 0101 woman admitted at 39-4/7 weeks gestation in early active labor. Initial admission blood pressures are elevated. Currently laboratory data is pending. She does have a history of preeclampsia with previous . She has a history of a previous low transverse section and she desires trial of labor. Group B strep prophylactic antibiotics will be administered. Pending the outcome of her laboratory data we'll decide on route of delivery. status is currently reassuring.
[2020-07-13] MEDS: LACTATED RINGERS 1,000 ML IV SCH ×2 (13:44→16:41)
[2020-07-13 13:58] LABS: Basophils % (A) 0 %; Eosinophils # (A) 0.2 k/uL (0-0.7); Eosinophils % (A) 2 %; HCT 35.1 % (34.0-46.0); Lymphocytes # (A) 1.2 k/uL (1.0-4.8); Lymphocytes % (A) 12 %; MCH 29.7 pg (25.0-35.0); MCHC 34.2 g/dL (31.0-37.0); Mean Platelet Volume 7.7; Monocytes # (A) 0.5 k/uL (0-1.0); Monocytes % (A) 5 %; Neutrophils # (A) 7.6 k/uL (1.3-7.7); Neutrophils % (A) 79 %; Platelet Count 365 k/uL (150-450); RBC 4.04 m/uL (3.80-5.40); RDW 13.6 % (11.5-15.5); WBC 9.6 k/uL (3.8-10.6)
[2020-07-13 14:05] LABS: Appearance,Urine Cloudy (Clear); Bilirubin,Urine Negative (Negative); Blood,Urine Moderate (Negative); Color,Urine Yellow; Glucose,Urine (UA) Negative (Negative); Ketones,Urine Negative (Negative); Leukocyte Esterase,Urine Moderate (Negative); Mucus,Urine Rare /hpf; Nitrite,Urine Negative (Negative); PH, Urine 5.5 (5.0-8.0); Protein,Urine Negative (Negative); RBC,Urine 1 /hpf (0-5); Specific Gravity,Urine 1.009 (1.001-1.035); Squamous Epithelial Cell,Urine 2 /hpf (0-4); Urobilinogen,Urine <2.0 mg/dL (<2.0); WBC,Urine 7 /hpf (0-5)
[2020-07-13 14:06] LABS: Creatinine,Urine Random 63.5 mg/dL; Protein/Creatinine Ratio,Urine 0.268
[2020-07-13 14:10] LABS: ALT 12 U/L (4-34); AST 22 U/L (14-36); African American GFR (CKD) >90 (>60 ml/min/1.73 sqM); Blood Urea Nitrogen 9 mg/dL (7-17); LDH 422 U/L (313-618); Non-African American GFR(CKD) >90 (>60 ml/min/1.73 sqM); Uric Acid 4.6 mg/dL (3.7-7.4)
[2020-07-13 14:18] LABS: INR 0.8 (<1.2); Partial Thromboplastin Time 21.3 sec (22.0-30.0); Prothrombin Time 9.3 sec (9.0-12.0)
[2020-07-13] MEDS: hydrALAZINE HCL 20 MG/ML 1 ML VIAL IVP STA ×2 (15:19→20:38)
[2020-07-13] MEDS ORDERED: ROPIVACAINE 5MG/ML 20ML VIAL ONE (16:27)
[2020-07-13] MEDS ORDERED: SODIUM CHLORIDE 0.9% 100 ML BAG ONE (16:27)
[2020-07-13] MEDS ORDERED: fentaNYL (PF) 50 MCG/ML 5 ML AMP ONE (16:27)
[2020-07-13] MEDS: PENICILLIN G POTASSIUM 2,500,000 UNIT in DEXTROSE 5% IN WATER 100 ML IVPB SCH ×4 (17:50→22:14)
[2020-07-13] MEDS ORDERED: OXYTOCIN 30 UNITS/500 ML NS 30 UNIT in SALINE 1 500ML.BAG IV SCH ×2 (18:00→23:30)
[2020-07-13] MEDS ORDERED: CITRIC ACID-SODIUM CITRATE 15 ML CUP PO ONE (22:21)
[2020-07-13] MEDS ORDERED: OXYTOCIN 10 UNIT/ML 1 ML VIAL ONE (22:25)
[2020-07-13] MEDS ORDERED: DEXAMETHASONE SOD PHOSPHATE 4 MG/ML 1 ML VIAL ONE (22:25)
[2020-07-13] MEDS ORDERED: MORPHINE SULFATE (PF) 0.3 MG/0.3 ML SYR ONE (22:25)
[2020-07-13] MEDS ORDERED: ONDANSETRON 4 MG/2 ML VIAL ONE (22:25)
[2020-07-13] MEDS ORDERED: fentaNYL (PF) 50 MCG/ML 2 ML AMP ONE (22:25)
[2020-07-13] MEDS ORDERED: NALBUPHINE 10 MG/ML (1 ML AMP) IV PRN (23:21)
[2020-07-13] MEDS ORDERED: NALOXONE 0.4 MG/ML 1 ML VIAL IV PRN ×2 (23:21→23:25)
[2020-07-13] MEDS ORDERED: diphenhydrAMINE 50 MG/ML 1 ML VIAL IVP PRN ×3 (23:21→23:25)
[2020-07-13] MEDS ORDERED: MORPHINE SULFATE 2 MG/ML SYRINGE IVP PRN (23:21)
[2020-07-13] MEDS ORDERED: ONDANSETRON 4 MG/2 ML VIAL IVP PRN ×2 (23:21→23:25)
[2020-07-13] MEDS ORDERED: ACETAMINOPHEN IV (For NPO) 1,000 MG in EMPTY BAG 1 BAG IVPB ONE (23:25)
[2020-07-13] MEDS ORDERED: ZOLPIDEM 5 MG TAB PO PRN (23:25)
[2020-07-13] MEDS ORDERED: METOCLOPRAMIDE 5 MG/ML 2 ML VIAL IVP PRN (23:25)
[2020-07-13] MEDS ORDERED: diphenhydrAMINE 50 MG CAP PO PRN (23:25)
[2020-07-13] MEDS ORDERED: diphenhydrAMINE 25 MG CAP PO PRN (23:25)
[2020-07-13] MEDS ORDERED: SIMETHICONE 80 MG CHEWABLE PO PRN (23:25)
[2020-07-13] MEDS ORDERED: IBUPROFEN IV 800 MG in SODIUM CHLORIDE 0.9% 250 ML IV ONE (23:33)
--- NOTE | 2020-07-13 23:33 | P.OP ---
Date of Procedure: 07/13/20 Preoperative Diagnosis: IUP at 39-3/7 weeks, arrest of descent, abdominal pain over prior scar Postoperative Diagnosis: Same Procedure(s) Performed: Repeat section Anesthesia: epidural Surgeon: Dania Cdeillo Lag Screwer #1: Paty Nieto Estimated Blood Loss (ml): 300 IV fluids (ml): 800 Urine output (ml): 40 Pathology: other (Placenta) Condition: stable Disposition: observation Indications for Procedure: This 34-year-old 2 para 0101 at 39-3/7 weeks presented to labor and delivery with complaints of regular contractions starting early this morning. Patient was noted to have elevated blood pressures in addition. Patient was given hydralazine 1 and admitted to labor and delivery. Patient underwent amniotomy and meconium-stained fluid was appreciated. Patient made slow progress through labor eventually Pitocin augmentation of labor was begun. Patient did receive an epidural during labor. Patient began pushing at 2025. Minimal descent of the head was noted at this time along with increasing complaints from the patient of abdominal pain over her prior scar. Patient stated it was just painful and could not describe it further. Given no descent after 2 hours of pushing and increasing pain decision was made to proceed with repeat section. Patient understood reasoning behind decision and wished to proceed. Operative Findings: Uterus was noted to be intact upon entering the abdomen, normal tubes and ovaries were appreciated. Viable male infant delivered at 2240, weight of 8 lbs. 1 oz. with Apgars of 8 and 9 at one and 5 minutes respectively. Description of Procedure: Patient was taken back to the operating suite where epidural anesthesia was deemed to be appropriate by the anesthesia . She was then prepped and draped in normal sterile fashion in the dorsal supine position. A Pfannenstiel skin incision was made with the scalpel and carried through the underlying layer of fascia. The fascia was then incised in the midline and extended laterally. The superior aspect of the fascial incision was then grasped lor clamps, elevated and underlying rectus muscle was dissected off sharply. Attention was then turned the inferior aspect of the fascial incision which was grasped lor clamps, elevated and underlying rectus muscle was dissected off sharply. The r ectus muscles were in the midline the peritoneum was identified and entered. The bladder blade was then inserted. A bladder flap was then created using sharp and blunt dissection. Hysterotomy incision was then performed with the scalpel the head was noted low in the pelvis this was delivered up through the hysterotomy incision fetus noted to be in the occiput transverse presentation. The umbilical cord was doubly clamped and cut and was handed off to awaiting RN, spontaneous cry was noted at . The placenta was then delivered manually and the uterus was cleared of all clots and debris. Of note the placenta and membranes were noted to be meconium stained. Uterus was then delivered from the abdomen and hysterotomy incision was closed with 0 Vicryl in a running locked fashion. A second imbricating layer was then performed. Bleeding was noted on the left-hand side of the uterine incision therefore a mfufdx-wg-thetr suture was used to obtain hemostasis. The uterus was then returned to the abdomen. The gutters were cleared of all clots and debris. Small amount of bleeding was appreciated in the right lateral edge of the uterine incision a opicfm-ns-nindv suture was used to obtain hemostasis. Continued bleeding was noted therefore the uterus was delivered back out of the abdomen the area was inspected and an additional ufgzyi-ip-ogyos suture was used to obtain hemostasis. Surgicel was placed along the hysterotomy incision. The uterus was returned to the abdomen. The hysterotomy incision and both lateral corners were inspected multiple times hemostasis being appreciated. The [place] was noted to be draining clear yellow urine. The fascia was then closed with 0 Vicryl in a running fashion from one lateral edge the other. The subcutaneous tissue was irrigated and found to be hemostatic. It was closed with 3-0 Vicryl in a running fashion. The skin was then closed with 4-0 Vicryl in a subcuticular fashion. Steri-Strips were then applied. All counts were noted be correct 2 at the end of the procedure. Patient and tolerated procedure well and are resting comfortably.
[2020-07-14] MEDS ORDERED: LABETALOL 200 MG TAB PO STA (00:32)
[2020-07-14] MEDS: LACTATED RINGERS 1,000 ML IV SCH ×3 (01:00→19:53)
[2020-07-14] MEDS ORDERED: LEVOTHYROXINE 137 MCG TAB PO SCH (06:30)
--- NOTE | 2020-07-14 06:49 | P.PN ---
Progress Note - Text Progress Note Date: 07/14/20 Gris is a 34-year-old female who is postop day 1 from surgery section. She had an epidural catheter in place and is doing well. Epidural catheters been removed. There is no lower extremity weakness. Bowel function and bladder function have returned.
[2020-07-14] MEDS: LABETALOL 100 MG TAB PO SCH ×2 (07:30→21:32)
[2020-07-14] MEDS: SENNOSIDES-DOCUSATE SODIUM 1 EACH TAB PO SCH ×2 (07:31→19:51)
[2020-07-14 07:37] LABS: Basophils % (A) 0 %; Eosinophils % (A) 0 %; HCT 30.3 % (34.0-46.0); HGB 10.4 gm/dL (11.4-16.0); Lymphocytes # (A) 0.6 k/uL (1.0-4.8); Lymphocytes % (A) 4 %; MCH 30.2 pg (25.0-35.0); MCHC 34.2 g/dL (31.0-37.0); MCV 88.3 fL (80.0-100.0); Mean Platelet Volume 7.8; Monocytes # (A) 0.6 k/uL (0-1.0); Monocytes % (A) 4 %; Neutrophils % (A) 91 %; Platelet Count 325 k/uL (150-450); RBC 3.44 m/uL (3.80-5.40); RDW 13.7 % (11.5-15.5); WBC 15.4 k/uL (3.8-10.6)
[2020-07-14] MEDS: LEVOTHYROXINE 125 MCG TAB PO SCH (08:21)
--- NOTE | 2020-07-14 09:24 | P.PNOBGPC ---
Subjective - Subjective Principal diagnosis: Postop day one half status post repeat low transverse section Interval history: Patient's approximately 10 hours. On repeat low transverse section done for failure to progress in the second stage and abdominal pain along the old scar. currently her pain is well-controlled. Patient reports: Reports pain well controlled, Denies ambulating normally, Denies nauseated [place]: doing well, nursing well Objective - Vital Signs Latest vital signs: Vital Signs Temp Pulse Resp BP BP Pulse Ox 07/14/20 07:54 98.6 F 79 18 117/69 07/14/20 06:00 14 07/14/20 04:00 98.4 F 64 14 111/67 07/14/20 01:34 98.5 F 70 16 146/85 100 07/14/20 01:04 97.6 F 68 14 157/91 100 07/14/20 00:34 66 14 156/96 99 07/14/20 00:19 69 14 150/92 100 07/14/20 00:04 62 14 122/83 100 07/13/20 23:49 71 14 101/62 100 07/13/20 23:34 97.0 F L 70 14 107/62 99 07/13/20 13:10 98.8 F 61 16 137/95 100 07/13/20 12:44 98.8 F 61 16 137/95 100 Intake and Output 07/13/20 07/14/20 07/14/20 22:59 06:59 14:59 Output Total 50 200 400 Balance -50 -200 -400 Output: Urine 50 200 400 Uretheral ([place]) 400 Other: Voiding Method Indwelling Catheter Indwelling Catheter - Exam Extremities: Present: normal Abdomen: Present: normal appearance, soft, tenderness Incision: Present: dry, dressed Uterus: Present: normal, firm - Labs Labs: Abnormal Lab Results - Last 24 Hours (Table) 07/13/20 07/13/20 07/14/20 Range/Units 13:00 13:38 06:59 WBC 15.4 H (3.8-10.6) k/uL RBC 3.44 L (3.80-5.40) m/uL Hgb 10.4 L (11.4-16.0) gm/dL Hct 30.3 L (34.0-46.0) % Neutrophils # 14.0 H (1.3-7.7) k/uL Lymphocytes # 0.6 L (1.0-4.8) k/uL APTT 21.3 L (22.0-30.0) sec Fibrinogen 605 H (200-500) mg/dL Urine Appearance Cloudy H (Clear) Urine Blood Moderate H (Negative) Ur Leukocyte Esterase Moderate H (Negative) Urine WBC 7 H (0-5) /hpf Urine Mucus Rare H (None) /hpf Assessment and Plan (1) GBS (group B Streptococcus carrier), +RV culture, currently Current Visit: Yes Status: Acute Code(s): O99.820 - STREPTOCOCCUS B CARRIER STATE COMPLICATING SNOMED Code(s): 8147797943017 (2) History of section Current Visit: Yes Status: Acute Code(s): Z98.891 - HISTORY OF UTERINE SCAR FROM PREVIOUS SURGERY SNOMED Code(s): 553244221 (3) Hypothyroid Current Visit: No Status: Acute Code(s): E03.9 - HYPOTHYROIDISM, UNSPECIFIED SNOMED Code(s): 92628546 (4) Spontaneous onset of labor Current Visit: Yes Status: Acute Code(s): DSW3045 - SNOMED Code(s): 63962301 (5) Failed trial of labor following previous , delivered Current Visit: Yes Status: Acute Code(s): O66.41 - FAILED ATTEMPT VAGINAL AFTER PREVIOUS DEL SNOMED Code(s): 95704984 (6) Meconium in amniotic fluid Current Visit: Yes Status: Acute Code(s): P96.83 - MECONIUM STAINING SNOMED Code(s): 303453491 Plan: 34 year old 2 now para 2 woman postop day one half status post repeat low transverse section after arrest of descent and dilatation in the second stage, abdominal pain along the old scar. She is recovering well. Pain is well-controlled. We'll advance her diet. Discontinue [place] catheter and ambulate later in the day per protocol. Postop day 1 labs. Within normal limits. Blood pressures currently within normal limits. We'll monitor closely.
[2020-07-14] MEDS: IBUPROFEN 600 MG TAB PO PRN ×2 (14:48→22:26)
[2020-07-14] MEDS: ACETAMINOPHEN TAB 325 MG TAB PO PRN (19:51)
[2020-07-15] MEDS: IBUPROFEN 600 MG TAB PO PRN ×3 (05:06→21:04)
[2020-07-15] MEDS: LEVOTHYROXINE 125 MCG TAB PO SCH (06:00)
--- NOTE | 2020-07-15 08:26 | P.PNOBGPC ---
Subjective - Subjective Principal diagnosis: Postop day 2 Interval history: Sore with abdominal pain and cramping overnight Patient reports: Reports appetite normal, Reports voiding normally, Reports pain poorly controlled, Reports ambulating normally, Denies dizzy ambulation, Denies pain well controlled : doing well, nursing well Objective - Vital Signs Latest vital signs: Vital Signs Temp Pulse Resp BP Pulse Ox 07/15/20 07:32 98.3 F 82 17 123/82 07/14/20 23:04 98.6 F 65 16 131/78 07/14/20 21:00 98.6 F 71 16 124/70 07/14/20 20:01 17 07/14/20 17:26 18 07/14/20 16:00 98.0 F 93 16 136/70 98 07/14/20 14:00 17 07/14/20 12:09 97.8 F 75 17 116/71 07/14/20 09:53 17 - Exam Extremities: Present: normal Abdomen: Present: normal appearance, soft. Absent: distention Incision: Present: normal, dry, intact. Absent: erythematous Uterus: Present: normal, firm Assessment and Plan (1) GBS (group B Streptococcus carrier), +RV culture, currently Current Visit: Yes Status: Acute Code(s): O99.820 - STREPTOCOCCUS B CARRIER STATE COMPLICATING SNOMED Code(s): 0826831405705 (2) History of section Current Visit: Yes Status: Acute Code(s): Z98.891 - HISTORY OF UTERINE SCAR FROM PREVIOUS SURGERY SNOMED Code(s): 308367574 (3) Hypothyroid Current Visit: No Status: Acute Code(s): E03.9 - HYPOTHYROIDISM, UNSPECIFIED SNOMED Code(s): 12631464 (4) Spontaneous onset of labor Current Visit: Yes Status: Acute Code(s): EQH1194 - SNOMED Code(s): 13394063 (5) Failed trial of labor following previous , delivered Current Visit: Yes Status: Acute Code(s): O66.41 - FAILED ATTEMPT VAGINAL AFTER PREVIOUS DEL SNOMED Code(s): 08982464 (6) Meconium in amniotic fluid Current Visit: Yes Status: Acute Code(s): P96.83 - MECONIUM STAINING SNOMED Code(s): 180393920 Plan: Postop day 2 status post repeat low transverse section after failed trial of labor. Blood pressures have continued to remain normal in the postoperative timeframe. She is trying to avoid taking any pain medications however we did discuss scheduled use of alternating Tylenol and ibuprofen for her to be able to more comfortably recover. Probable discharge home tomorrow.
[2020-07-15] MEDS: SENNOSIDES-DOCUSATE SODIUM 1 EACH TAB PO SCH ×2 (14:23→14:55)
[2020-07-15] MEDS: ACETAMINOPHEN TAB 325 MG TAB PO PRN (14:51)
[2020-07-15] MEDS: LABETALOL 100 MG TAB PO SCH ×2 (18:30→21:29)
[2020-07-15] MEDS: HYDROcodone/APAP 5-325MG 1 EACH TAB PO PRN (23:32)
[2020-07-15 23:43] VITALS: RESP 18
[2020-07-16] MEDS: LEVOTHYROXINE 125 MCG TAB PO SCH (05:50)
[2020-07-16] MEDS: HYDROcodone/APAP 5-325MG 1 EACH TAB PO PRN (05:50)
[2020-07-16 08:32] VITALS: BP 135/84; PULSE 80; TEMP 98.2
[2020-07-16] MEDS: IBUPROFEN 600 MG TAB PO PRN (08:35)
[2020-07-16] MEDS: SENNOSIDES-DOCUSATE SODIUM 1 EACH TAB PO SCH (08:35)
--- NOTE | 2020-07-16 08:40 | P.DS ---
Providers Date of admission: 07/13/20 12:59 Expected date of discharge: 07/16/20 Attending physician: Kathy Tan Primary care physician: Stated None - Discharge Diagnosis(es) (1) GBS (group B Streptococcus carrier), +RV culture, currently Current Visit: Yes Status: Acute (2) History of section Current Visit: Yes Status: Acute (3) Hypothyroid Current Visit: No Status: Acute (4) Spontaneous onset of labor Current Visit: Yes Status: Acute (5) Failed trial of labor following previous , delivered Current Visit: Yes Status: Acute (6) Meconium in amniotic fluid Current Visit: Yes Status: Acute Hospital Course: This is a 34-year-old 2 now para 2 woman who is admitted at 39+ weeks gestation in spontaneous active labor. She has a history of a previous low transverse section and desired trial of labor. Following admission she did have some elevated blood pressures that were treated with IV hydralazine. She received an epidural anesthetic which essentially normalized her blood pressures for the duration of her labor. She received Pitocin augmentation and did reach the second stage of labor. She pushed for approximately 2 hours and at that time there was some minimal descent of the vertex and she began describing pain over her old scar. She was therefore taken for repeat low transverse section. Findings at the time of surgery were significant for a liveborn male infant with Apgars of 8 at 1 minute and 9 at 5 minutes weighing 8 lbs. 1 oz. Please see the operative report for details. Patient's postoperative course was unremarkable by the morning of postoperative day #1 she was able to void without difficulty with a [place] catheter removed. Her blood pressures were stable. Her lochia was moderate and she was breast-feeding successfully. By postop day #2 she continued to do well however had in satisfactory pain control. Discussion scheduled pain med use was undertaken. By postoperative day #3 she was feeling better, her lochia was minimal and she was breast feeding successfully. Her vital signs were stable her postoperative laboratory data was within normal limits she was therefore discharged home with routine postop instructions for care and follow-up. Procedures: Repeat low transverse section Patient Condition at Discharge: Good Plan - Discharge Summary New Discharge Prescriptions: New Ibuprofen [Motrin] 600 mg PO Q6HR PRN tab PRN Reason: Mild Pain Or Fever >= 100.5 HYDROcodone/APAP 5-325MG [[place] 5-325] 1 each PO Q6HR PRN 3 Days #10 tab PRN Reason: Moderate Pain Sennosides-Docusate Sodium [Senokot-S] 2 each PO BID@0800,1999 tab Continue Levothyroxine Sodium [Synthroid] 125 mcg PO DAILY Discharge Medication List Levothyroxine Sodium [Synthroid] 125 mcg PO DAILY 08/21/18 [History] HYDROcodone/APAP 5-325MG [[place] 5-325] 1 each PO Q6HR PRN 3 Days #10 tab 07/16/20 [Rx] Ibuprofen [Motrin] 600 mg PO Q6HR PRN tab 07/16/20 [Rx] Sennosides-Docusate Sodium [Senokot-S] 2 each PO BID@0800,1999 tab 07/16/20 [Rx] Follow up Appointment(s)/Referral(s): Kathy Tan MD [STAFF PHYSICIAN] - 2 Weeks Activity/Diet/Wound Care/Special Instructions: Follow-up in 2 weeks after surgery in the office. Call the office with any concerning signs or symptoms including fever greater than 100.5, severe abdominal pain, heavy vaginal bleeding, signs of wound infection, increased swelling or redness of the lower extremities, signs of depression, severe headaches or visual changes. No driving for 2 weeks after surgery. No heavy lifting or vigorous activity until reevaluated in the office. No intercourse for 6 weeks after delivery. Discharge Disposition: HOME SELF-CARE
[2020-07-16] MEDS: LABETALOL 100 MG TAB PO SCH (10:59)
== END 2020-07-16 10:35 | disposition home or self-care (01) | DRG 788 ==
LOC: FBPOP 12:28 → 4FBP 12:59
PROVIDERS: ADMIT Obstetrics & Gynecology; ATTEND Obstetrics & Gynecology
PROC: 10907ZC Drainage of Amniotic Fluid, Therapeutic from Products of Conception, Via Natural or Artificial Opening (ICD-10-PCS; 2020-07-13)
PROC: 3E0R3BZ Introduction of Anesthetic Agent into Spinal Canal, Percutaneous Approach (ICD-10-PCS; 2020-07-13)
PROC: 10D00Z1 Extraction of Products of Conception, Low, Open Approach (ICD-10-PCS; principal; 2020-07-13 22:37)
DX: O34.211 Maternal care for low transverse scar from previous cesarean delivery (principal); O99.824 Streptococcus B carrier state complicating childbirth; Z37.0 Single live birth; E03.9 Hypothyroidism, unspecified; O99.284 Endocrine, nutritional and metabolic diseases complicating childbirth; O62.1 Secondary uterine inertia; O77.0 Labor and delivery complicated by meconium in amniotic fluid; O66.41 Failed attempted vaginal birth after previous cesarean delivery; Z3A.39 39 weeks gestation of pregnancy; Z79.890 Hormone replacement therapy
CPT/HCPCS: 59025; 81001; 82565; 82570; 83615; 84156; 84450; 84460; 84520; 84550; 85025; 85384; 85610; 85730; 86850; 86900; 86901; 88307; 99213

== ENCOUNTER 2020-08-17 10:12 | Day surgery (SDC) | payer OTHER ==
[2020-08-12 13:34] VITALS: BMI 22.4
[2020-08-17 10:37] VITALS: TEMP 97.7
[2020-08-17] MEDS ORDERED: LACTATED RINGERS 1,000 ML IV ONE ×2 (10:38)
[2020-08-17] MEDS ORDERED: LIDOCAINE 1% (10MG/ML) FOR IV START INTRADERMA ONE (10:39)
[2020-08-17] MEDS ORDERED: PROPOFOL 10 MG/ML 20 ML VIAL IV ONE (10:43)
[2020-08-17 11:24] VITALS: RESP 16
--- NOTE | 2020-08-17 11:28 | P.PCN ---
Date of Procedure: 08/17/20 Description of Procedure: BRIEF HISTORY: Patient is a 35-year-old female presenting for outpatient colonoscopy for evaluation of rectal hemorrhage/hemorrhage of the anus and rectum. She reported intermittent blood per rectum associated with constipation and a sensation of incomplete evacuation. Colonoscopy was ordered for further evaluation. PROCEDURE PERFORMED: Colonoscopy with biopsy and tattoo. PREOPERATIVE DIAGNOSIS: Hemorrhage of the anus and rectum, rectal bleeding, hematochezia. ESTIMATED BLOOD LOSS: Minimal. IV sedation per Anesthesia. PROCEDURE: After informed consent was obtained, the patient, was brought into the endoscopy unit. IV sedation was administered by Anesthesia under continuous monitoring. Digital rectal examination was normal. Initially the Olympus CF-190 flexible video colonoscope was then inserted in the rectum, gradually advanced into the cecum without any difficulty. Careful examination was performed as the scope was gradually being withdrawn. Ileocecal valve and the appendiceal orifice were visualized and appeared normal. Prep was excellent. Mucosa of the cecum, ascending colon, transverse colon, descending colon, sigmoid colon, appeared normal. In the rectum however, there was a 5 cm circumferential mass extending from approximately 5 cm from the anal verge to approximately 10 cm from the anal verge encompassing approximately 80% of the lumen. Multiple biopsies were taken of the mass and a tattoo was placed 2 cm proximal to the mass and just distal to the mass with a total of 5 mL of ink injection. The patient tolerated the procedure well. IMPRESSION: Circumferential rectal mass located in the distal rectum approximately 5 cm from anal verge with biopsies and tattoo placed. RECOMMENDATIONS: Findings of this examination were discussed with the patient and her . Okay to resume diet. Okay to resume medications. I would recommend stool softeners. Plan for further imaging to be set up with the patient and a clinic visit later in the week, likely PET scan to rule out metastatic disease. Biopsy results will be discussed at that time and further referrals made pending on findings.
[2020-08-17 11:43] VITALS: BP 124/84; PULSE 77
== END 2020-08-17 12:43 | disposition home or self-care (01) ==
LOC: ORWHC2ENDO 10:12
PROVIDERS: ATTEND Internal Medicine
DX: C20 Malignant neoplasm of rectum (principal); K59.00 Constipation, unspecified; E03.9 Hypothyroidism, unspecified; Z79.890 Hormone replacement therapy
CPT/HCPCS: 81025; 88305; 45380; 45381; J2704

== ENCOUNTER → 2020-08-21 | Outpatient (CLI) | payer OTHER ==
--- NOTE | 2020-08-24 10:09 | PE ---
EXAMINATION TYPE: PET CT fusion skull to thigh DATE OF EXAM: 08/21/2020 COMPARISON: NONE HISTORY: 35-year-old female C20, rectal mass, initial evaluation. TECHNIQUE: Following the intravenous administration of 11.36 mCi of F-18 FDG, whole body images are performed from the skull base to the midthigh. Images are reviewed on the computer in the coronal, a xial, and sagittal planes. Reconstructed rotating images are created on independent workstation and reviewed on the computer. A localization and attenuation correction CT is performed in conjunction with the PET scan. SCAN: Initial Scan Glucose level: 100 MG/DL Injection site: Right hand FINDINGS: PET: 8 mm hypodense lesion right lobe of the thyroid gland shows no discrete FDG uptake, possible cyst of the thyroid gland. This can be confirmed with thyroid ultrasound. Otherwise, physiologic FDG uptake w ithin the neck. Intense bilateral mammary uptake associated with dense fibroglandular tissue. Findings compatible wit h patient's recent and lactating state. Otherwise, physiologic FDG uptake within the chest . Average liver SUV There is some mild inflammatory changes along the anterior pelvic abdominal wall suggesting recent C- section. There is moderate irregular circumferential thickening of the upper and mid rectum spanning 8.3 cm cr aniocaudal, max SUV 15.8. There is some perirectal fat stranding and additional perirectal nodularity . Contiguous nodular extension from the right posterolateral aspect of the rectum measures 1.7 cm and also shows very intense uptake. Nodule on the left measures 1.7 cm, max SUV 6.6, and nodules on the right measure up to 8 mm but show no discrete FDG uptake Otherwise, physiologic FDG uptake within the abdomen and pelvis. ATTENUATION CORRECTION CT: There is mild lobulated mucosal thickening floor of the left maxillary sinus. Mastoid air cells are w ell pneumatized. Orotracheal: Appears clear. No cervical lymphadenopathy. Heart normal size without pericardial effusion. Aorta normal caliber with no line configuration to th e aortic arch. No thoracic lymphadenopathy identified. No consolidation or pleural effusion. No dilated small bowel, free fluid, or free air. No mesenteric or retroperitoneal lymphadenopathy. No rmal appendix. Tiny fatty umbilical hernia. There is moderate to large stool burden. No pericolonic i nflammatory change. Bladder nondistended. Uterus anteverted. Neither ovary clearly delineated from adjacent bowel loops. Some presacral edema is noted. Bones: There may be some subtle subarticular erosion at the bilateral SI joints otherwise, no osseous destructive process. IMPRESSION: 1. Hypermetabolic annular thickening of the upper and mid rectum spanning 8.3 cm top to bottom highly suggestive of rectal carcinoma. 2. There is intensely hypermetabolic nodular extension along the right posterolateral aspect of the r ectum into the perirectal fat measuring 1.7 cm. Perirectal lymph nodes are also present, largest on t he left is suspicious at 1.7 cm with lesser degree of intense uptake. Along the right perirectal juan on, nodes measure up to 8 mm without discrete FDG uptake, nonspecific, but likely too small for adequ ate PET characterization. 3. No evidence for distant metastases within the chest or abdomen. 4. An 8 mm hypodense lesion of the right thyroid gland shows no convincing FDG uptake and probably re presents a thyroid gland cyst. This can be confirmed with thyroid ultrasound. 5. Intense bilateral mammary uptake compatible with recent and lactating state.
== END | disposition home or self-care (01) ==
LOC: RADPETMAIN 07:23
PROVIDERS: ATTEND Internal Medicine
DX: C20 Malignant neoplasm of rectum (principal); E07.89 Other specified disorders of thyroid
CPT/HCPCS: 78815; A9552

== ENCOUNTER → 2020-08-27 | Outpatient (CLI) | payer OTHER | END | disposition home or self-care (01) | LOC: LABWHC1 13:01 | PROVIDERS: ATTEND Internal Medicine Endocrinology, Diabetes & Metabolism | DX: E03.8 Other specified hypothyroidism (principal) | CPT/HCPCS: 36415; 84443 ==

== ENCOUNTER → 2020-12-21 | Outpatient (CLI) | payer OTHER | END | disposition home or self-care (01) | LOC: LABWHC1 12:06 | PROVIDERS: ATTEND Internal Medicine Endocrinology, Diabetes & Metabolism | DX: E03.8 Other specified hypothyroidism (principal) | CPT/HCPCS: 36415; 84443 ==

== ENCOUNTER → 2021-03-23 | Outpatient (CLI) | payer OTHER | END | disposition home or self-care (01) | LOC: LABWHC1 14:24 | PROVIDERS: ATTEND Internal Medicine Endocrinology, Diabetes & Metabolism | DX: E03.8 Other specified hypothyroidism (principal) | CPT/HCPCS: 36415; 84443 ==

== ENCOUNTER → 2021-11-26 | Outpatient (CLI) | payer OTHER ==
--- NOTE | 2021-11-28 08:18 | US ---
EXAMINATION TYPE: US thyroid st tissue head/neck DATE OF EXAM: 11/26/2021 COMPARISON: NONE CLINICAL HISTORY: E04.1 Thyroid cyst. GLAND SIZE: Right Lobe: 4.7 x 1.4 x 1.1 cm Overall Parenchyma: homogenous Left Lobe: 4.0 x 0.7 x 0.9 cm Overall Parenchyma: homogeneous Isthmus Thickness: 0.2 cm NODULES RIGHT: # of nodules measured on right: 1. 1.2 X .05 x 1.0 cm, lower , cystic or almost completely cystic, anechoic nodule, which is wider than tall, with smooth margins, without echogenic foci. No prior LEFT: # of nodules measured on left: 0 ISTHMUS: # of nodules measured in the isthmus: 0 Bilateral neck scanned, no evidence of lymphadenopathy. Homogeneous normal-sized thyroid with 1.2 cm right thyroid cystic nodule. IMPRESSION: As above. 2017 ACR TI-RADS LEVEL: TR-RADS 1 - BENIGN: No FNA *Highest TI-RADS level nodule reported
== END | disposition home or self-care (01) ==
LOC: RADUSWWP 14:48
PROVIDERS: ATTEND Internal Medicine Endocrinology, Diabetes & Metabolism
DX: E04.1 Nontoxic single thyroid nodule (principal)
CPT/HCPCS: 76536; 84443

== ENCOUNTER → 2022-04-25 | Outpatient (CLI) | payer OTHER | END | disposition home or self-care (01) | LOC: LABWHC1 13:44 | PROVIDERS: ATTEND Internal Medicine Endocrinology, Diabetes & Metabolism | DX: E03.8 Other specified hypothyroidism (principal) | CPT/HCPCS: 36415; 84443 ==

== ENCOUNTER → 2022-06-07 | Outpatient (CLI) | payer OTHER ==
[2022-06-07 14:44] LABS: Basophils # (A) 0.02 X 10*3/uL (0.00-0.10); Basophils % (A) 0.4 %; Eosinophils # (A) 0.29 X 10*3/uL (0.04-0.35); Eosinophils % (A) 6.4 %; HCT 41.5 % (37.2-46.3); HGB 13.3 g/dL (12.0-15.0); Immature Grans, Automated 0.4 %; Lymphocytes # (A) 0.73 X 10*3/uL (0.90-5.00); MCH 28.2 pg (27.0-32.0); MCV 88.1 fL (80.0-97.0); Mean Platelet Volume 11.2 fL (9.5-12.2); Monocytes # (A) 0.44 X 10*3/uL (0.20-1.00); Monocytes % (A) 9.7 %; NRBC Per 100 WBC 0 /100 WBCS (0.0-0.0); Neutrophils # (A) 3.05 X 10*3/uL (1.80-7.70); Neutrophils % (A) 67.1 %; Platelet Count 275 X 10*3/uL (140-440); RBC 4.71 X 10*6/uL (4.10-5.20); RDW 12.6 % (11.5-14.5); WBC 4.55 X 10*3/uL (4.50-10.00)
[2022-06-07 19:34] LABS: African American GFR (CKD) 116.9 (60.0-200.0); Albumin 4.3 g/dL (3.8-4.9); Anion Gap 10.8 mmol/L (10.00-18.00); BUN/Creat Ratio 13.89 Ratio (12.00-20.00); Blood Urea Nitrogen 10.5 mg/dL (9.0-27.0); Calcium 9.6 mg/dL (8.7-10.3); Carbon Dioxide 25.8 mmol/L (20.0-27.5); Follicle Stimulating Hormone 78.3 mIU/mL; Globulin 2.2 g/dL (1.6-3.3); Non-African American GFR(CKD) 100.9 (60.0-200.0); Potassium 4.1 mmol/L (3.5-5.5); Total Bilirubin 0.4 mg/dL (0.30-1.20); Total Protein 6.5 g/dL (6.2-8.2)
[2022-06-07 19:35] LABS: T4, Free (Free Thyroxine) 1.96 ng/dL (0.800-1.800)
[2022-06-09 05:23] LABS: Estradiol 10.6 pg/mL; Luteinizing Hormone 46.3 mIU/mL; Prolactin 7.6 ng/mL (2.800-29.200); Testosterone 15.7 ng/mL (9.01-47.94)
[2022-06-09 08:34] LABS: Insulin Level 3.7 mIU/mL (3.0-25.0); Progesterone 0.3 ng/mL
== END | disposition home or self-care (01) ==
LOC: LABWHC1 08:57
PROVIDERS: ATTEND Physical Medicine & Rehabilitation
DX: C21.8 Malignant neoplasm of overlapping sites of rectum, anus and anal canal (principal); G60.8 Other hereditary and idiopathic neuropathies; K26.9 Duodenal ulcer, unspecified as acute or chronic, without hemorrhage or perforation
CPT/HCPCS: 36415; 80053; 82533; 82627; 82670; 83001; 83002; 83525; 84144; 84146; 84270; 84402; 84403; 84439; 84443; 84446; 84481; 85025

== ENCOUNTER → 2022-10-25 | Outpatient (CLI) | payer OTHER | END | disposition home or self-care (01) | LOC: LABWHC1 14:12 | PROVIDERS: ATTEND Internal Medicine Endocrinology, Diabetes & Metabolism | DX: E03.8 Other specified hypothyroidism (principal) | CPT/HCPCS: 36415; 84443 ==

== ENCOUNTER → 2023-04-28 | Outpatient (CLI) | payer OTHER | END | disposition home or self-care (01) | LOC: LABWHC1 14:08 | PROVIDERS: ATTEND Internal Medicine Endocrinology, Diabetes & Metabolism | DX: E03.8 Other specified hypothyroidism (principal) | CPT/HCPCS: 36415; 84443 ==

== ENCOUNTER → 2024-08-12 | Outpatient (CLI) | payer OTHER | END | disposition home or self-care (01) | LOC: LABWHC1 13:40 | PROVIDERS: ATTEND Internal Medicine Endocrinology, Diabetes & Metabolism | DX: E03.8 Other specified hypothyroidism (principal) | CPT/HCPCS: 36415; 84443 ==